=== PATIENT | female | born 1980 | race Two or more races ===

== ENCOUNTER → 2024-11-10 | Outpatient (CLI) | payer MEDICAID, SELFPAY ==
--- NOTE | 2024-11-10 08:15 | XR_ITS ---
Examination: Diagnostic digital mammography, unilateral, right Computer aided detection 3-D breast Tomosynthesis, unilateral Date and time of exam: November 10, 2024 0719 hours INDICATIONS: Mammogram April 24, 2024 focal asymmetry upper right breast MLO view Technique: Nonmagnified MLO, CC views of the right breast have been obtained, reconstructed from 3-D Tomosynthesis images. R2 computer aided detection program utilized for evaluation of suspicious masses and/or abnormal calcifications. 3-D Tomosynthesis images obtained. Findings: The breast is heterogeneously dense, which may obscure small masses 12:00 nodule noted on today's ultrasound 11 mm circumscribed Stable focal asymmetry upper right breast on the spot compression MLO view Impression: BI-RADS category 2: Benign findings Recommend yearly follow-up mammography Also recommend 6 month right breast sonogram follow-up
--- NOTE | 2024-11-10 09:25 | XR_ITS ---
Examination: Breast ultrasound, unilateral, right complete Date and time of exam: November 10, 2024 0724 hours INDICATIONS: Right breast sonogram April 24, 2024 dilated retroareolar ducts, mammogram October 27, 2023 6 mm focal asymmetry inner lower quadrant right breast Technique: Real-time marrero scale ultrasonographic imaging performed right breast including all 4 quadrants as well as nipple retroareolar and axillary region. Findings: 12:00 oval mass circumscribed 8 x 3 x 11 mm IMPRESSION: BI-RADS Category 3: Probably benign findings One additional 6 month right breast sonogram follow-up is needed to document stability of 12:00 nodule described above
== END | disposition home or self-care (01) ==
LOC: CDIM 07:08
PROVIDERS: PCP Obstetrics & Gynecology; Referring Provider Obstetrics & Gynecology; Visit Provider Obstetrics & Gynecology
DX: R92.321 Mammographic fibroglandular density, right breast (principal); N63.15 Unspecified lump in the right breast, overlapping quadrants
CPT/HCPCS: 76641; 77061; 77065; G0279